=== PATIENT | female | born 1945 | race Caucasian/White ===

== ENCOUNTER 2018-05-06 13:13 | Emergency (ER) | payer MEDICARE, OTHER, SELFPAY ==
[2018-05-06 13:26] VITALS: BP 155/71; PULSE 81; RESP 18; TEMP 36.8; O2SAT 100
[2018-05-06 13:30] VITALS: BP 147/64; PULSE 87; RESP 20; O2SAT 95
--- NOTE | 2018-05-06 13:40 | DI.CT.S_ITS ---
PROCEDURE: CT HEAD/BRAIN WO CON INDICATIONS: numbness TECHNIQUE: Noncontrast 4.5 mm thick angled axial sections acquired from the foramen magnum to the vertex, with coronal and sagittal reformats. For radiation dose reduction, the following was used: automated exposure control, adjustment of mA and/or kV according to patient size. COMPARISON: [facility], MR, BRAIN (PITUITARY) W&WO CONTRAS, 02/24/2015, 13:03. [facility], MR, BRAIN (PITUITARY) W&WO CONTRAS, 06/18/2008, 10:24. [facility], RG, MRI HEAD W/WO, 07/12/2006, 9:45. [facility], RG, MRI HEAD W/WO, 07/27/2006, 13:16. FINDINGS: Image quality: Excellent. CSF spaces: Basal cisterns are patent. No extra-axial fluid collections. The ventricles are symmetric in size and shape. Brain: No intracranial bleeds or masses. There is cerebral volume loss for age, with resultant ventricular and sulcal prominence. There are periventricular and deep white matter chronic small vessel ischemic changes. There is intracranial internal carotid artery atherosclerosis. Skull and face: Calvarium and visualized facial bones appear intact, without suspicious lesions. Sinuses: Visualized sinuses and mastoids are clear. IMPRESSION: 1. No acute intracranial process. 2. Moderate atrophy and chronic microvascular ischemic changes. Dictated by: Kell Hendrix M.D. on 05/06/2018 at 14:56 Approved by: Kell Hendrix M.D. on 05/06/2018 at 14:57
--- NOTE | 2018-05-06 13:45 | ED.GENADULT ---
HPI - General Adult <MAKEDA Erickson-BC - Last Filed: 05/07/18 00:52> General Chief complaint: Diabetic Problem Stated complaint: Hyperglycemia Time Seen by Provider: 05/06/18 13:28 Source: patient Mode of arrival: EMS History of Present Illness HPI narrative: Patient presents after having high blood sugar of 500s at [place] this morning. She states she felt very weak in [place], especially in her right lower leg. She felt as though she could not walk. [place] very fatigued. Was concerned her blood sugar was too low. Checked her blood sugar and found to be and 500s and gave herself a bolus of 6 units of insulin. She is a type 1 diabetic with a current basal rate of 1 unit. She also has a history of a stroke which presented with a visual deficit. She currently denies any fever, shortness of breath or chest pain. She denies any abdominal pain. Her blood sugar was checked when she arrived to the emergency department found to be in the 200s. She states that her numbness and weakness corrected itself after her blood sugar came down. Related Data Home Medications Medication Instructions Recorded Confirmed LEVOTHYROXINE SODIUM (#LEVOTHROID 0.15 mg PO QDAY #0 09/06/12 OFF MARKET) insulin aspart U-100 [Novolog #0 09/06/12 U-100 Insulin aspart] simvastatin [Zocor] 20 mg PO HS #0 09/06/12 Travoprost (TRAVATAN OPHTH 0.004%) 1 drp OPHTH HS #0 03/04/13 [FISH OIL] 1,000 mg PO QDAY #0 03/18/13 [MULTI VITAMIN ] #0 03/18/13 aspirin 81 mg PO BID #0 03/18/13 conj estrog-medroxyprogest matt 1 tab PO QDAY #0 03/25/13 [Prempro] Allergies Allergy/AdvReac Type Severity Reaction Status Date / Time No Known Drug Allergies Allergy Verified 05/06/18 15:28 Review of Systems <CHAPINCITO Ericksno - Last Filed: 05/07/18 00:52> Review of Systems GENERAL: See HPI HEENT: Denies sinus pain, ear pain, sore throat, difficulty swallowing, dizziness. RESPIRATORY: Denies dyspnea, cough, wheezing, hemoptysis, sputum. CARDIOVASCULAR: Denies chest pain, palpitations, orthopnea, edema, GASTROINTESTINAL: Denies nausea, vomiting, abdominal pain, diarrhea, constipation, melena. : Denies dysuria, frequency, incontinence, hematuria, urinary retention. MUSCULOSKELETAL: denies weakness, joint pain, or bony pain SKIN: Denies rash, skin lesions, or other NEUROLOGIC: See HPI PSYCHIATRIC: No concerning psychosocial issues. 12 point review of systems is negative except for those stated above Exam <DARLIN EricksonP-BC - Last Filed: 05/07/18 00:52> Narrative Exam Narrative: GENERAL: This is a well-nourished, well-developed patient, no acute distress lying on stretcher. HEAD: Atraumatic. Normocephalic. No temporal or scalp tenderness. EYES: Pupils equal round and reactive. Extraocular motions intact. No scleral icterus. No injection or drainage. ENT: Nose without bleeding, purulent drainage or septal hematoma. Throat without erythema, tonsillar hypertrophy or exudate. Uvula midline. Airway patent. NECK: Trachea midline. No JVD or lymphadenopathy. Supple, nontender, no meningeal signs. CARDIOVASCULAR: Regular rate and rhythm without murmurs, gallops, or rubs. RESPIRATORY: Clear to auscultation. Breath sounds equal bilaterally. No wheezes, rales, or rhonchi. GASTROINTESTINAL: Abdomen soft, non-tender, nondistended. No hepato-splenomegaly, or palpable masses. No guarding. EXTREMITIES: No clubbing, cyanosis, or edema. No joint tenderness, effusion, or edema noted. Strength equal bilaterally upper and lower extremities. BACK: Nontender without deformity or crepitance. No flank tenderness. NEURO: AOx3. No slurred speech. Negative heel-simon test. Negative finger-nose test. Alert and oriented throughout her stay. Stable gait. Cranial nerves grossly intact. Symmetrical smile and frown. SKIN: No rash or erythema. Initial Vital Signs Initial Vital Signs: Vital Signs Temperature 98.3 F 05/06/18 13:26 Pulse Rate 81 05/06/18 13:26 Respiratory Rate 18 05/06/18 13:26 Blood Pressure 155/71 H 05/06/18 13:26 Pulse Oximetry 100 05/06/18 13:26 <Chilo Rodriguez MD - Last Filed: 05/07/18 08:45> Initial Vital Signs Initial Vital Signs: Vital Signs Temperature 98.3 F 05/06/18 13:26 Pulse Rate 81 05/06/18 13:26 Respiratory Rate 18 05/06/18 13:26 Blood Pressure 155/71 H 05/06/18 13:26 Pulse Oximetry 100 05/06/18 13:26 Course <Hanh ChenDARLINP-BC - Last Filed: 05/07/18 00:52> Additional Information: The patient presented with chief complaint of high blood sugar. Her blood sugar was 222 initially upon arrival. Given her weakness and her history of stroke, a head CT was ordered which came back negative. Her blood sugars carefully monitored throughout her stay. I checked on her several times throughout her stay. The patient requested to go home after her symptoms resolve. I discussed at length with the patient possibility of a TIA of malfunctioning insulin pump. She plans on following up with her ?diabetes doctor tomorrow.? I discussed monitoring her blood sugar every few hours throughout the night. She had no focal neurologic symptoms and was discharged with her . Orders Ordered: ED Orders 05/06/18 13:25 Urinalysis and Microscopic Stat 05/06/18 13:40 CT head/brain wo con Stat EKG-12 Lead Stat 05/06/18 14:10 Complete Blood Count AUTO DIFF Stat Comprehensive Metabolic Panel Stat Troponin & CK Cardiac Panel Stat 05/06/18 14:48 Venous Blood Gas Stat Vital Signs - 8 hr 05/06/18 13:26 05/06/18 13:30 05/06/18 16:00 Temperature 98.3 F Pulse Rate 81 87 85 Respiratory Rate 18 20 14 Blood Pressure 155/71 H Blood Pressure [Left Arm] 147/64 H 152/70 H Pulse Oximetry 100 95 99 <Chilo Rodriguez MD - Last Filed: 05/07/18 08:45> Orders Ordered: ED Orders 05/06/18 13:25 Urinalysis and Microscopic Stat 05/06/18 13:40 CT head/brain wo con Stat EKG-12 Lead Stat 05/06/18 14:10 Complete Blood Count AUTO DIFF Stat Comprehensive Metabolic Panel Stat Troponin & CK Cardiac Panel Stat 05/06/18 14:48 Venous Blood Gas Stat Vital Signs - 8 hr 05/06/18 13:26 05/06/18 13:30 05/06/18 16:00 Temperature 98.3 F Pulse Rate 81 87 85 Respiratory Rate 18 20 14 Blood Pressure 155/71 H Blood Pressure [Left Arm] 147/64 H 152/70 H Pulse Oximetry 100 95 99 Medical Decision Making <Hanh Chen CANCELING AND CUTTING CONTROL CLERK-BC - Last Filed: 05/07/18 00:52> [facility] Narrative Medical decision making narrative: Patient presented with chief complaint of high blood sugar. An EKG was done. Her blood sugar came down within normal limits. She had a negative head CT. She has slight ketones in her urine, so a VBG was drawn. Her anion gap was 6. Her blood sugars remained in good control throughout her stay in the emergency department. Her neuro exam remained benign. The patient requested to go home. I discussed at length follow-up with her wage conciliator as well as her primary care provider. She discussed that she will check her blood sugar several times throughout the night. She will be staying in and [place] She had no questions or concerns upon discharge and expressed gratitude to staff. Lab Data Result diagrams: 05/06/18 14:10 05/06/18 14:10 Lab Results 05/06/18 05/06/18 05/06/18 Range/Units 13:25 14:10 14:10 WBC 11.2 H (4.5-11.0) X10^3/uL RBC 4.89 (4.0-5.2) X10^6/uL Hgb 14.7 (12.0-16.0) g/dL Hct 43.9 (36-46) % MCV 89.7 (80-100) fL MCH 30.0 (26-34) PG MCHC 33.4 (30-36) % RDW 14.3 (11.6-14.8) % Plt Count 286 (150-400) X10^3/uL Neut % (Auto) 72.2 (50-75) % Lymph % (Auto) 17.8 L (25-40) % Cecil % (Auto) 7.4 (3-14) % Eos % (Auto) 1.6 L (2-4) % Baso % (Auto) 1.0 (0-2) % Neut # (Auto) 8100 H (8338-7168) /uL VBG pH (7.31-7.41) VBG pCO2 (45-50) mmHg VBG pO2 (35-45) mmHg VBG HCO3 (24-28) mmol/L VBG Total CO2 (24-29) mmol/L VBG O2 Saturation (70-75) % VBG Base Excess (0-4) mmol/L Sodium 135 L (137-145) mmol/L Potassium 5.1 (3.4-5.1) mmol/L Chloride 99 (98-107) mmol/L Carbon Dioxide 29 (22-32) mmol/L BUN 29 H (7-17) mg/dL Creatinine 1.00 (0.52-1.04) mg/dL Estimated GFR 54.2 L (>60) mL/min BUN/Creatinine Ratio 29.0 H (6-22) Glucose 195 H (80-110) mg/dL Calcium 10.0 (8.4-10.2) mg/dL Total Bilirubin 0.4 (0.2-1.3) mg/dL AST 30 (14-36) IU/L ALT 33 (9-52) IU/L Alkaline Phosphatase 59 (38-126) U/L Total Creatine Kinase 161 H (30-135) U/L CK-MB (CK-2) 1.70 (<2.37) ng/mL CK-MB (CK-2) Rel Index 1.1 L (1.5-5.0) % Troponin I 0.026 (0.01-0.034) ng/mL Total Protein 7.1 (6.3-8.2) g/dL Albumin 4.4 (3.5-5.0) g/dL Globulin 2.7 (1.7-4.1) g/dL Albumin/Globulin Ratio 1.6 (1.0-2.8) Urine Color Yellow Urine Appearance Clear Urine pH 7.0 (4.5-8.0) Ur Specific Monument 1.010 (1.000-1.035) Urine Protein Negative (Negative) Urine Glucose (UA) 3+ (Normal) g/dL Urine Ketones 1+ H (NEGATIVE) Urine Occult Blood Negative (Negative) Urine Nitrate Negative (Negative) Urine Bilirubin Negative (NEGATIVE) Urine Urobilinogen 0.2 (0.2) E.U./dL Ur Leukocyte Esterase Negative (NEGATIVE) Urine RBC None seen (0-5/HPF) Urine WBC None seen (0-5/HPF) Urine Bacteria None seen (None) Ur Culture Indicated? Cult not indicated Micro UA Comment Microscopic normal 05/06/18 Range/Units 14:48 WBC (4.5-11.0) X10^3/uL RBC (4.0-5.2) X10^6/uL Hgb (12.0-16.0) g/dL Hct (36-46) % MCV (80-100) fL MCH (26-34) PG MCHC (30-36) % RDW (11.6-14.8) % Plt Count (150-400) X10^3/uL Neut % (Auto) (50-75) % Lymph % (Auto) (25-40) % Cecil % (Auto) (3-14) % Eos % (Auto) (2-4) % Baso % (Auto) (0-2) % Neut # (Auto) (9386-7935) /uL VBG pH 7.40 (7.31-7.41) VBG pCO2 48.5 (45-50) mmHg VBG pO2 12 L (35-45) mmHg VBG HCO3 30 H (24-28) mmol/L VBG Total CO2 31 H (24-29) mmol/L VBG O2 Saturation 12 L (70-75) % VBG Base Excess 5.0 H (0-4) mmol/L Sodium (137-145) mmol/L Potassium (3.4-5.1) mmol/L Chloride (98-107) mmol/L Carbon Dioxide (22-32) mmol/L BUN (7-17) mg/dL Creatinine (0.52-1.04) mg/dL Estimated GFR (>60) mL/min BUN/Creatinine Ratio (6-22) Glucose (80-110) mg/dL Calcium (8.4-10.2) mg/dL Total Bilirubin (0.2-1.3) mg/dL AST (14-36) IU/L ALT (9-52) IU/L Alkaline Phosphatase (38-126) U/L Total Creatine Kinase (30-135) U/L CK-MB (CK-2) (<2.37) ng/mL CK-MB (CK-2) Rel Index (1.5-5.0) % Troponin I (0.01-0.034) ng/mL Total Protein (6.3-8.2) g/dL Albumin (3.5-5.0) g/dL Globulin (1.7-4.1) g/dL Albumin/Globulin Ratio (1.0-2.8) Urine Color Urine Appearance Urine pH (4.5-8.0) Ur Specific Monument (1.000-1.035) Urine Protein (Negative) Urine Glucose (UA) (Normal) g/dL Urine Ketones (NEGATIVE) Urine Occult Blood (Negative) Urine Nitrate (Negative) Urine Bilirubin (NEGATIVE) Urine Urobilinogen (0.2) E.U./dL Ur Leukocyte Esterase (NEGATIVE) Urine RBC (0-5/HPF) Urine WBC (0-5/HPF) Urine Bacteria (None) Ur Culture Indicated? Micro UA Comment Imaging Data CT scan - head: Radiologist's impression: [address] [address] [address] Scan Report Signed Patient: Glendy Flynn MR#: [id number] : 1945 Acct:[id number] Age/Sex: 72 / F Date of Service: 05/06/18 Loc: ED Accession Number: [id number] Procedure: CT head/brain wo con Ordering Provider: Hanh Chen- PROCEDURE: CT HEAD/BRAIN WO CON INDICATIONS: numbness TECHNIQUE: Noncontrast 4.5 mm thick angled axial sections acquired from the foramen magnum to the vertex, with coronal and sagittal reformats. For radiation dose reduction, the following was used: automated exposure control, adjustment of mA and/or kV according to patient size. COMPARISON: [facility], , BRAIN (PITUITARY) W&WO CONTRAS, 02/24/2015, 13:03. [facility], , BRAIN (PITUITARY) W&WO CONTRAS, 06/18/2008, 10:24. [facility], , MRI HEAD W/WO, 07/12/2006, 9:45. [facility], , MRI HEAD W/WO, 07/27/2006, 13:16. FINDINGS: Image quality: Excellent. CSF spaces: Basal cisterns are patent. No extra-axial fluid collections. The ventricles are symmetric in size and shape. Brain: No intracranial bleeds or masses. There is cerebral volume loss for age, with resultant ventricular and sulcal prominence. There are periventricular and deep white matter chronic small vessel ischemic changes. There is intracranial internal carotid artery atherosclerosis. Skull and face: Calvarium and visualized facial bones appear intact, without suspicious lesions. Sinuses: Visualized sinuses and mastoids are clear. IMPRESSION: 1. No acute intracranial process. 2. Moderate atrophy and chronic microvascular ischemic changes. Dictated by: Kell Hendrix M.D. on 05/06/2018 at 14:56 Approved by: Kell Hendrix M.D. on 05/06/2018 at 14:57 <Chilo Rodriguez MD - Last Filed: 05/07/18 08:45> Lab Data Lab Results 05/06/18 05/06/18 05/06/18 Range/Units 13:25 14:10 14:10 WBC 11.2 H (4.5-11.0) X10^3/uL RBC 4.89 (4.0-5.2) X10^6/uL Hgb 14.7 (12.0-16.0) g/dL Hct 43.9 (36-46) % MCV 89.7 (80-100) fL MCH 30.0 (26-34) PG MCHC 33.4 (30-36) % RDW 14.3 (11.6-14.8) % Plt Count 286 (150-400) X10^3/uL Neut % (Auto) 72.2 (50-75) % Lymph % (Auto) 17.8 L (25-40) % Cecil % (Auto) 7.4 (3-14) % Eos % (Auto) 1.6 L (2-4) % Baso % (Auto) 1.0 (0-2) % Neut # (Auto) 8100 H (4480-2052) /uL VBG pH (7.31-7.41) VBG pCO2 (45-50) mmHg VBG pO2 (35-45) mmHg VBG HCO3 (24-28) mmol/L VBG Total CO2 (24-29) mmol/L VBG O2 Saturation (70-75) % VBG Base Excess (0-4) mmol/L Sodium 135 L (137-145) mmol/L Potassium 5.1 (3.4-5.1) mmol/L Chloride 99 (98-107) mmol/L Carbon Dioxide 29 (22-32) mmol/L BUN 29 H (7-17) mg/dL Creatinine 1.00 (0.52-1.04) mg/dL Estimated GFR 54.2 L (>60) mL/min BUN/Creatinine Ratio 29.0 H (6-22) Glucose 195 H (80-110) mg/dL Calcium 10.0 (8.4-10.2) mg/dL Total Bilirubin 0.4 (0.2-1.3) mg/dL AST 30 (14-36) IU/L ALT 33 (9-52) IU/L Alkaline Phosphatase 59 (38-126) U/L Total Creatine Kinase 161 H (30-135) U/L CK-MB (CK-2) 1.70 (<2.37) ng/mL CK-MB (CK-2) Rel Index 1.1 L (1.5-5.0) % Troponin I 0.026 (0.01-0.034) ng/mL Total Protein 7.1 (6.3-8.2) g/dL Albumin 4.4 (3.5-5.0) g/dL Globulin 2.7 (1.7-4.1) g/dL Albumin/Globulin Ratio 1.6 (1.0-2.8) Urine Color Yellow Urine Appearance Clear Urine pH 7.0 (4.5-8.0) Ur Specific Monument 1.010 (1.000-1.035) Urine Protein Negative (Negative) Urine Glucose (UA) 3+ (Normal) g/dL Urine Ketones 1+ H (NEGATIVE) Urine Occult Blood Negative (Negative) Urine Nitrate Negative (Negative) Urine Bilirubin Negative (NEGATIVE) Urine Urobilinogen 0.2 (0.2) E.U./dL Ur Leukocyte Esterase Negative (NEGATIVE) Urine RBC None seen (0-5/HPF) Urine WBC None seen (0-5/HPF) Urine Bacteria None seen (None) Ur Culture Indicated? Cult not indicated Micro UA Comment Microscopic normal 05/06/18 Range/Units 14:48 WBC (4.5-11.0) X10^3/uL RBC (4.0-5.2) X10^6/uL Hgb (12.0-16.0) g/dL Hct (36-46) % MCV (80-100) fL MCH (26-34) PG MCHC (30-36) % RDW (11.6-14.8) % Plt Count (150-400) X10^3/uL Neut % (Auto) (50-75) % Lymph % (Auto) (25-40) % Cecil % (Auto) (3-14) % Eos % (Auto) (2-4) % Baso % (Auto) (0-2) % Neut # (Auto) (8417-9375) /uL VBG pH 7.40 (7.31-7.41) VBG pCO2 48.5 (45-50) mmHg VBG pO2 12 L (35-45) mmHg VBG HCO3 30 H (24-28) mmol/L VBG Total CO2 31 H (24-29) mmol/L VBG O2 Saturation 12 L (70-75) % VBG Base Excess 5.0 H (0-4) mmol/L Sodium (137-145) mmol/L Potassium (3.4-5.1) mmol/L Chloride (98-107) mmol/L Carbon Dioxide (22-32) mmol/L BUN (7-17) mg/dL Creatinine (0.52-1.04) mg/dL Estimated GFR (>60) mL/min BUN/Creatinine Ratio (6-22) Glucose (80-110) mg/dL Calcium (8.4-10.2) mg/dL Total Bilirubin (0.2-1.3) mg/dL AST (14-36) IU/L ALT (9-52) IU/L Alkaline Phosphatase (38-126) U/L Total Creatine Kinase (30-135) U/L CK-MB (CK-2) (<2.37) ng/mL CK-MB (CK-2) Rel Index (1.5-5.0) % Troponin I (0.01-0.034) ng/mL Total Protein (6.3-8.2) g/dL Albumin (3.5-5.0) g/dL Globulin (1.7-4.1) g/dL Albumin/Globulin Ratio (1.0-2.8) Urine Color Urine Appearance Urine pH (4.5-8.0) Ur Specific Monument (1.000-1.035) Urine Protein (Negative) Urine Glucose (UA) (Normal) g/dL Urine Ketones (NEGATIVE) Urine Occult Blood (Negative) Urine Nitrate (Negative) Urine Bilirubin (NEGATIVE) Urine Urobilinogen (0.2) E.U./dL Ur Leukocyte Esterase (NEGATIVE) Urine RBC (0-5/HPF) Urine WBC (0-5/HPF) Urine Bacteria (None) Ur Culture Indicated? Micro UA Comment Discharge Plan Departure Patient Disposition: Home, Self-Care Clinical Impression: Acute hyperglycemia Discharge Date/Time: 05/06/18 16:40 Interventions: ED Discharge Assessment Last Done: 05/06/18 16:40 Instructions: DI for Diabetes Type 1 -- Adult, DI for Hyperglycemia -- Adult Activity Restrictions/Additional Instructions: Please check your blood sugar several times today and tonight. Follow up with your diabetes doctor as well as your primary care provider. Come back to the emergency department if needed or if you have any acute concerns. Come back for any concern of confusion, stroke, heart attack or if you persistently have high blood sugars. Prescriptions: No Action simvastatin [Zocor] 20 MG tablet 20 mg PO HS Qty: 0 RF: 0 LEVOTHYROXINE SODIUM (#LEVOTHROID OFF MARKET) 0.15 mg PO QDAY Qty: 0 RF: 0 insulin aspart U-100 [Novolog U-100 Insulin aspart] 100 UNIT/1 ML solution Qty: 0 RF: 0 Travoprost (TRAVATAN OPHTH 0.004%) 1 drp OPHTH HS Qty: 0 RF: 0 aspirin 81 MG tablet,delayed release (DR/EC) 81 mg PO BID Qty: 0 RF: 0 [FISH OIL] 1,000 mg PO QDAY Qty: 0 RF: 0 [MULTI VITAMIN ] Qty: 0 RF: 0 conj estrog-medroxyprogest matt [Prempro] 0.3 MG/1.5 MG tablet 1 tab PO QDAY Qty: 0 RF: 0 Referrals: John Woo MD [Primary Care Provider] - <Chilo Rodriguez MD - Last Filed: 05/07/18 08:45> Sign Out Provider Sign Out Attestation: The PA/ASSISTANT READING TEACHER functioned independently for the care of this pt, I was available, but not asked to participate in care. I am unable to determine appropriateness of management without personally examining the pt.
[2018-05-06 13:52] LABS: Bacteria Urine None Seen; RBC Urine None Seen (0-5/HPF); WBC Urine None Seen (0-5/HPF)
[2018-05-06 13:53] LABS: Appearance Urine UA CLEAR; Bilirubin Urine UA NEGATIVE (NEGATIVE); Color Urine UA YELLOW; Glucose Urine UA 3+ g/dL (Normal); Ketones Urine UA 1+ (NEGATIVE); Leukocyte Esterase Urine UA NEGATIVE (NEGATIVE); Nitrite Urine UA Negative (Negative); Occult Blood Urine UA NEGATIVE (Negative); Protein Urine UA NEGATIVE (Negative); Urobilinogen Urine UA 0.2 E.U./dL (0.2)
--- NOTE | 2018-05-06 13:56 | ED_ITS ---
HPI - General Adult <MAKEDA Erickson-BC - Last Filed: 05/07/18 00:52> General Chief complaint: Diabetic Problem Stated complaint: Hyperglycemia Time Seen by Provider: 05/06/18 13:28 Source: patient Mode of arrival: EMS History of Present Illness HPI narrative: Patient presents after having high blood sugar of 500s at synagogue this morning. She states she felt very weak in synagogue, especially in her right lower leg. She felt as though she could not walk. [place] very fatigued. Was concerned her blood sugar was too low. Checked her blood sugar and found to be and 500s and gave herself a bolus of 6 units of insulin. She is a type 1 diabetic with a current basal rate of 1 unit. She also has a history of a stroke which presented with a visual deficit. She currently denies any fever, shortness of breath or chest pain. She denies any abdominal pain. Her blood sugar was checked when she arrived to the emergency department found to be in the 200s. She states that her numbness and weakness corrected itself after her blood sugar came down. Related Data Home Medications Medication Instructions Recorded Confirmed LEVOTHYROXINE SODIUM (#LEVOTHROID 0.15 mg PO QDAY #0 09/06/12 OFF MARKET) insulin aspart U-100 [Novolog #0 09/06/12 U-100 Insulin aspart] simvastatin [Zocor] 20 mg PO HS #0 09/06/12 Travoprost (TRAVATAN OPHTH 0.004%) 1 drp OPHTH HS #0 03/04/13 [FISH OIL] 1,000 mg PO QDAY #0 03/18/13 [MULTI VITAMIN ] #0 03/18/13 aspirin 81 mg PO BID #0 03/18/13 conj estrog-medroxyprogest matt 1 tab PO QDAY #0 03/25/13 [Prempro] Allergies Allergy/AdvReac Type Severity Reaction Status Date / Time No Known Drug Allergies Allergy Verified 05/06/18 15:28 Review of Systems <CHAPINCITO Erickson - Last Filed: 05/07/18 00:52> Review of Systems GENERAL: See HPI HEENT: Denies sinus pain, ear pain, sore throat, difficulty swallowing, dizziness. RESPIRATORY: Denies dyspnea, cough, wheezing, hemoptysis, sputum. CARDIOVASCULAR: Denies chest pain, palpitations, orthopnea, edema, GASTROINTESTINAL: Denies nausea, vomiting, abdominal pain, diarrhea, constipation, melena. : Denies dysuria, frequency, incontinence, hematuria, urinary retention. MUSCULOSKELETAL: denies weakness, joint pain, or bony pain SKIN: Denies rash, skin lesions, or other NEUROLOGIC: See HPI PSYCHIATRIC: No concerning psychosocial issues. 12 point review of systems is negative except for those stated above Exam <DARLIN EricksonP-BC - Last Filed: 05/07/18 00:52> Narrative Exam Narrative: GENERAL: This is a well-nourished, well-developed patient, no acute distress lying on stretcher. HEAD: Atraumatic. Normocephalic. No temporal or scalp tenderness. EYES: Pupils equal round and reactive. Extraocular motions intact. No scleral icterus. No injection or drainage. ENT: Nose without bleeding, purulent drainage or septal hematoma. Throat without erythema, tonsillar hypertrophy or exudate. Uvula midline. Airway patent. NECK: Trachea midline. No JVD or lymphadenopathy. Supple, nontender, no meningeal signs. CARDIOVASCULAR: Regular rate and rhythm without murmurs, gallops, or rubs. RESPIRATORY: Clear to auscultation. Breath sounds equal bilaterally. No wheezes , rales, or rhonchi. GASTROINTESTINAL: Abdomen soft, non-tender, nondistended. No hepato-splenomegaly , or palpable masses. No guarding. EXTREMITIES: No clubbing, cyanosis, or edema. No joint tenderness, effusion, or edema noted. Strength equal bilaterally upper and lower extremities. BACK: Nontender without deformity or crepitance. No flank tenderness. NEURO: AOx3. No slurred speech. Negative heel-simon test. Negative finger-nose test. Alert and oriented throughout her stay. Stable gait. Cranial nerves grossly intact. Symmetrical smile and frown. SKIN: No rash or erythema. Initial Vital Signs Initial Vital Signs: Vital Signs Temperature 98.3 F 05/06/18 13:26 Pulse Rate 81 05/06/18 13:26 Respiratory Rate 18 05/06/18 13:26 Blood Pressure 155/71 H 05/06/18 13:26 Pulse Oximetry 100 05/06/18 13:26 <Chilo Rodriguez MD - Last Filed: 05/07/18 08:45> Initial Vital Signs Initial Vital Signs: Vital Signs Temperature 98.3 F 05/06/18 13:26 Pulse Rate 81 05/06/18 13:26 Respiratory Rate 18 05/06/18 13:26 Blood Pressure 155/71 H 05/06/18 13:26 Pulse Oximetry 100 05/06/18 13:26 Course <Hanh ChenDARLINP-BC - Last Filed: 05/07/18 00:52> Additional Information: The patient presented with chief complaint of high blood sugar. Her blood sugar was 222 initially upon arrival. Given her weakness and her history of stroke, a head CT was ordered which came back negative. Her blood sugars carefully monitored throughout her stay. I checked on her several times throughout her stay. The patient requested to go home after her symptoms resolve. I discussed at length with the patient possibility of a TIA of malfunctioning insulin pump. She plans on following up with her ? diabetes doctor tomorrow.? I discussed monitoring her blood sugar every few hours throughout the night. She had no focal neurologic symptoms and was discharged with her . Orders Ordered: ED Orders 05/06/18 13:25 Urinalysis and Microscopic Stat 05/06/18 13:40 CT head/brain wo con Stat EKG-12 Lead Stat 05/06/18 14:10 Complete Blood Count AUTO DIFF Stat Comprehensive Metabolic Panel Stat Troponin & CK Cardiac Panel Stat 05/06/18 14:48 Venous Blood Gas Stat Vital Signs - 8 hr 05/06/18 13:26 05/06/18 13:30 05/06/18 16:00 Temperature 98.3 F Pulse Rate 81 87 85 Respiratory Rate 18 20 14 Blood Pressure 155/71 H Blood Pressure [Left Arm] 147/64 H 152/70 H Pulse Oximetry 100 95 99 <Chilo Rodriguez MD - Last Filed: 05/07/18 08:45> Orders Ordered: ED Orders 05/06/18 13:25 Urinalysis and Microscopic Stat 05/06/18 13:40 CT head/brain wo con Stat EKG-12 Lead Stat 05/06/18 14:10 Complete Blood Count AUTO DIFF Stat Comprehensive Metabolic Panel Stat Troponin & CK Cardiac Panel Stat 05/06/18 14:48 Venous Blood Gas Stat Vital Signs - 8 hr 05/06/18 13:26 05/06/18 13:30 05/06/18 16:00 Temperature 98.3 F Pulse Rate 81 87 85 Respiratory Rate 18 20 14 Blood Pressure 155/71 H Blood Pressure [Left Arm] 147/64 H 152/70 H Pulse Oximetry 100 95 99 Medical Decision Making <Hanh Chen CONTINUITY TESTER-BC - Last Filed: 05/07/18 00:52> [facility] Narrative Medical decision making narrative: Patient presented with chief complaint of high blood sugar. An EKG was done. Her blood sugar came down within normal limits. She had a negative head CT. She has slight ketones in her urine, so a VBG was drawn. Her anion gap was 6. Her blood sugars remained in good control throughout her stay in the emergency department. Her neuro exam remained benign. The patient requested to go home. 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 She discussed that she will check her blood sugar several times throughout the night. She will be staying in and [place] She had no questions or concerns upon discharge and expressed gratitude to staff. Lab Data Result diagrams: 05/06/18 14:10 05/06/18 14:10 Lab Results 05/06/18 05/06/18 05/06/18 Range/Units 13:25 14:10 14:10 WBC 11.2 H (4.5-11.0) X10^3/uL RBC 4.89 (4.0-5.2) X10^6/uL Hgb 14.7 (12.0-16.0) g/dL Hct 43.9 (36-46) % MCV 89.7 (80-100) fL MCH 30.0 (26-34) PG MCHC 33.4 (30-36) % RDW 14.3 (11.6-14.8) % Plt Count 286 (150-400) X10^3/uL Neut % (Auto) 72.2 (50-75) % Lymph % (Auto) 17.8 L (25-40) % [place] % (Auto) 7.4 (3-14) % Eos % (Auto) 1.6 L (2-4) % Baso % (Auto) 1.0 (0-2) % Neut # (Auto) 8100 H (3516-8472) /uL VBG pH (7.31-7.41) VBG pCO2 (45-50) mmHg VBG pO2 (35-45) mmHg VBG HCO3 (24-28) mmol/L VBG Total CO2 (24-29) mmol/L VBG O2 Saturation (70-75) % VBG Base Excess (0-4) mmol/L Sodium 135 L (137-145) mmol/L Potassium 5.1 (3.4-5.1) mmol/L Chloride 99 (98-107) mmol/L Carbon Dioxide 29 (22-32) mmol/L BUN 29 H (7-17) mg/dL Creatinine 1.00 (0.52-1.04) mg/dL Estimated GFR 54.2 L (>60) mL/min BUN/Creatinine Ratio 29.0 H (6-22) Glucose 195 H (80-110) mg/dL Calcium 10.0 (8.4-10.2) mg/dL Total Bilirubin 0.4 (0.2-1.3) mg/dL AST 30 (14-36) IU/L ALT 33 (9-52) IU/L Alkaline Phosphatase 59 (38-126) U/L Total Creatine Kinase 161 H (30-135) U/L CK-MB (CK-2) 1.70 (<2.37) ng/mL CK-MB (CK-2) Rel Index 1.1 L (1.5-5.0) % Troponin I 0.026 (0.01-0.034) ng/mL Total Protein 7.1 (6.3-8.2) g/dL Albumin 4.4 (3.5-5.0) g/dL Globulin 2.7 (1.7-4.1) g/dL Albumin/Globulin Ratio 1.6 (1.0-2.8) Urine Color Yellow Urine Appearance Clear Urine pH 7.0 (4.5-8.0) Ur Specific Mallie 1.010 (1.000-1.035) Urine Protein Negative (Negative) Urine Glucose (UA) 3+ (Normal) g/dL Urine Ketones 1+ H (NEGATIVE) Urine Occult Blood Negative (Negative) Urine Nitrate Negative (Negative) Urine Bilirubin Negative (NEGATIVE) Urine Urobilinogen 0.2 (0.2) E.U./dL Ur Leukocyte Esterase Negative (NEGATIVE) Urine RBC None seen (0-5/HPF) Urine WBC None seen (0-5/HPF) Urine Bacteria None seen (None) Ur Culture Indicated? Cult not indicated Micro UA Comment Microscopic normal 05/06/18 Range/Units 14:48 WBC (4.5-11.0) X10^3/uL RBC (4.0-5.2) X10^6/uL Hgb (12.0-16.0) g/dL Hct (36-46) % MCV (80-100) fL MCH (26-34) PG MCHC (30-36) % RDW (11.6-14.8) % Plt Count (150-400) X10^3/uL Neut % (Auto) (50-75) % Lymph % (Auto) (25-40) % [place] % (Auto) (3-14) % Eos % (Auto) (2-4) % Baso % (Auto) (0-2) % Neut # (Auto) (2976-8848) /uL VBG pH 7.40 (7.31-7.41) VBG pCO2 48.5 (45-50) mmHg VBG pO2 12 L (35-45) mmHg VBG HCO3 30 H (24-28) mmol/L VBG Total CO2 31 H (24-29) mmol/L VBG O2 Saturation 12 L (70-75) % VBG Base Excess 5.0 H (0-4) mmol/L Sodium (137-145) mmol/L Potassium (3.4-5.1) mmol/L Chloride (98-107) mmol/L Carbon Dioxide (22-32) mmol/L BUN (7-17) mg/dL Creatinine (0.52-1.04) mg/dL Estimated GFR (>60) mL/min BUN/Creatinine Ratio (6-22) Glucose (80-110) mg/dL Calcium (8.4-10.2) mg/dL Total Bilirubin (0.2-1.3) mg/dL AST (14-36) IU/L ALT (9-52) IU/L Alkaline Phosphatase (38-126) U/L Total Creatine Kinase (30-135) U/L CK-MB (CK-2) (<2.37) ng/mL CK-MB (CK-2) Rel Index (1.5-5.0) % Troponin I (0.01-0.034) ng/mL Total Protein (6.3-8.2) g/dL Albumin (3.5-5.0) g/dL Globulin (1.7-4.1) g/dL Albumin/Globulin Ratio (1.0-2.8) Urine Color Urine Appearance Urine pH (4.5-8.0) Ur Specific Mallie (1.000-1.035) Urine Protein (Negative) Urine Glucose (UA) (Normal) g/dL Urine Ketones (NEGATIVE) Urine Occult Blood (Negative) Urine Nitrate (Negative) Urine Bilirubin (NEGATIVE) Urine Urobilinogen (0.2) E.U./dL Ur Leukocyte Esterase (NEGATIVE) Urine RBC (0-5/HPF) Urine WBC (0-5/HPF) Urine Bacteria (None) Ur Culture Indicated? Micro UA Comment Imaging Data CT scan - head: Radiologist's impression: [address] [address] [address] Scan Report Signed Patient: Glendy Flynn MR#: [id number] : 1945 Acct:[id number] Age/Sex: 72 / F Date of Service: 05/06/18 Loc: ED Accession Number: [id number] Procedure: CT head/brain wo con Ordering Provider: Hanh Chen- PROCEDURE: CT HEAD/BRAIN WO CON INDICATIONS: numbness TECHNIQUE: Noncontrast 4.5 mm thick angled axial sections acquired from the foramen magnum to the vertex, with coronal and sagittal reformats. For radiation dose reduction, the following was used: automated exposure control, adjustment of mA and/or kV according to patient size. COMPARISON: [facility], , BRAIN (PITUITARY) W&WO CONTRAS, 02/24/2015, 13: 03. [facility], , BRAIN (PITUITARY) W&WO CONTRAS, 06/18/2008, 10:24. [facility], , MRI HEAD W/WO, 07/12/2006, 9:45. [facility], , MRI HEAD W/ WO, 07/27/2006, 13:16. FINDINGS: Image quality: Excellent. CSF spaces: Basal cisterns are patent. No extra-axial fluid collections. The ventricles are symmetric in size and shape. Brain: No intracranial bleeds or masses. There is cerebral volume loss for age , with resultant ventricular and sulcal prominence. There are periventricular and deep white matter chronic small vessel ischemic changes. There is intracranial internal carotid artery atherosclerosis. Skull and face: Calvarium and visualized facial bones appear intact, without suspicious lesions. Sinuses: Visualized sinuses and mastoids are clear. IMPRESSION: 1. No acute intracranial process. 2. Moderate atrophy and chronic microvascular ischemic changes. Dictated by: Kell Hendrix M.D. on 05/06/2018 at 14:56 Approved by: Kell Hendrix M.D. on 05/06/2018 at 14:57 <Chilo Rodriguez MD - Last Filed: 05/07/18 08:45> Lab Data Lab Results 05/06/18 05/06/18 05/06/18 Range/Units 13:25 14:10 14:10 WBC 11.2 H (4.5-11.0) X10^3/uL RBC 4.89 (4.0-5.2) X10^6/uL Hgb 14.7 (12.0-16.0) g/dL Hct 43.9 (36-46) % MCV 89.7 (80-100) fL MCH 30.0 (26-34) PG MCHC 33.4 (30-36) % RDW 14.3 (11.6-14.8) % Plt Count 286 (150-400) X10^3/uL Neut % (Auto) 72.2 (50-75) % Lymph % (Auto) 17.8 L (25-40) % [place] % (Auto) 7.4 (3-14) % Eos % (Auto) 1.6 L (2-4) % Baso % (Auto) 1.0 (0-2) % Neut # (Auto) 8100 H (2254-2512) /uL VBG pH (7.31-7.41) VBG pCO2 (45-50) mmHg VBG pO2 (35-45) mmHg VBG HCO3 (24-28) mmol/L VBG Total CO2 (24-29) mmol/L VBG O2 Saturation (70-75) % VBG Base Excess (0-4) mmol/L Sodium 135 L (137-145) mmol/L Potassium 5.1 (3.4-5.1) mmol/L Chloride 99 (98-107) mmol/L Carbon Dioxide 29 (22-32) mmol/L BUN 29 H (7-17) mg/dL Creatinine 1.00 (0.52-1.04) mg/dL Estimated GFR 54.2 L (>60) mL/min BUN/Creatinine Ratio 29.0 H (6-22) Glucose 195 H (80-110) mg/dL Calcium 10.0 (8.4-10.2) mg/dL Total Bilirubin 0.4 (0.2-1.3) mg/dL AST 30 (14-36) IU/L ALT 33 (9-52) IU/L Alkaline Phosphatase 59 (38-126) U/L Total Creatine Kinase 161 H (30-135) U/L CK-MB (CK-2) 1.70 (<2.37) ng/mL CK-MB (CK-2) Rel Index 1.1 L (1.5-5.0) % Troponin I 0.026 (0.01-0.034) ng/mL Total Protein 7.1 (6.3-8.2) g/dL Albumin 4.4 (3.5-5.0) g/dL Globulin 2.7 (1.7-4.1) g/dL Albumin/Globulin Ratio 1.6 (1.0-2.8) Urine Color Yellow Urine Appearance Clear Urine pH 7.0 (4.5-8.0) Ur Specific Mallie 1.010 (1.000-1.035) Urine Protein Negative (Negative) Urine Glucose (UA) 3+ (Normal) g/dL Urine Ketones 1+ H (NEGATIVE) Urine Occult Blood Negative (Negative) Urine Nitrate Negative (Negative) Urine Bilirubin Negative (NEGATIVE) Urine Urobilinogen 0.2 (0.2) E.U./dL Ur Leukocyte Esterase Negative (NEGATIVE) Urine RBC None seen (0-5/HPF) Urine WBC None seen (0-5/HPF) Urine Bacteria None seen (None) Ur Culture Indicated? Cult not indicated Micro UA Comment Microscopic normal 05/06/18 Range/Units 14:48 WBC (4.5-11.0) X10^3/uL RBC (4.0-5.2) X10^6/uL Hgb (12.0-16.0) g/dL Hct (36-46) % MCV (80-100) fL MCH (26-34) PG MCHC (30-36) % RDW (11.6-14.8) % Plt Count (150-400) X10^3/uL Neut % (Auto) (50-75) % Lymph % (Auto) (25-40) % [place] % (Auto) (3-14) % Eos % (Auto) (2-4) % Baso % (Auto) (0-2) % Neut # (Auto) (9322-6200) /uL VBG pH 7.40 (7.31-7.41) VBG pCO2 48.5 (45-50) mmHg VBG pO2 12 L (35-45) mmHg VBG HCO3 30 H (24-28) mmol/L VBG Total CO2 31 H (24-29) mmol/L VBG O2 Saturation 12 L (70-75) % VBG Base Excess 5.0 H (0-4) mmol/L Sodium (137-145) mmol/L Potassium (3.4-5.1) mmol/L Chloride (98-107) mmol/L Carbon Dioxide (22-32) mmol/L BUN (7-17) mg/dL Creatinine (0.52-1.04) mg/dL Estimated GFR (>60) mL/min BUN/Creatinine Ratio (6-22) Glucose (80-110) mg/dL Calcium (8.4-10.2) mg/dL Total Bilirubin (0.2-1.3) mg/dL AST (14-36) IU/L ALT (9-52) IU/L Alkaline Phosphatase (38-126) U/L Total Creatine Kinase (30-135) U/L CK-MB (CK-2) (<2.37) ng/mL CK-MB (CK-2) Rel Index (1.5-5.0) % Troponin I (0.01-0.034) ng/mL Total Protein (6.3-8.2) g/dL Albumin (3.5-5.0) g/dL Globulin (1.7-4.1) g/dL Albumin/Globulin Ratio (1.0-2.8) Urine Color Urine Appearance Urine pH (4.5-8.0) Ur Specific Mallie (1.000-1.035) Urine Protein (Negative) Urine Glucose (UA) (Normal) g/dL Urine Ketones (NEGATIVE) Urine Occult Blood (Negative) Urine Nitrate (Negative) Urine Bilirubin (NEGATIVE) Urine Urobilinogen (0.2) E.U./dL Ur Leukocyte Esterase (NEGATIVE) Urine RBC (0-5/HPF) Urine WBC (0-5/HPF) Urine Bacteria (None) Ur Culture Indicated? Micro UA Comment Discharge Plan Departure Patient Disposition: Home, Self-Care Clinical Impression: Acute hyperglycemia Discharge Date/Time: 05/06/18 16:40 Interventions: ED Discharge Assessment Last Done: 05/06/18 16:40 Instructions: DI for Diabetes Type 1 -- Adult, DI for Hyperglycemia -- Adult Activity Restrictions/Additional Instructions: Please check your blood sugar several times today and tonight. Follow up with your diabetes doctor as well as your primary care provider. Come back to the emergency department if needed or if you have any acute concerns. Come back for any concern of confusion, stroke, heart attack or if you persistently have high blood sugars. Prescriptions: No Action simvastatin [Zocor] 20 MG tablet 20 mg PO HS Qty: 0 RF: 0 LEVOTHYROXINE SODIUM (#LEVOTHROID OFF MARKET) 0.15 mg PO QDAY Qty: 0 RF: 0 insulin aspart U-100 [Novolog U-100 Insulin aspart] 100 UNIT/1 ML solution Qty: 0 RF: 0 Travoprost (TRAVATAN OPHTH 0.004%) 1 drp OPHTH HS Qty: 0 RF: 0 aspirin 81 MG tablet,delayed release (DR/EC) 81 mg PO BID Qty: 0 RF: 0 [FISH OIL] 1,000 mg PO QDAY Qty: 0 RF: 0 [MULTI VITAMIN ] Qty: 0 RF: 0 conj estrog-medroxyprogest matt [Prempro] 0.3 MG/1.5 MG tablet 1 tab PO QDAY Qty: 0 RF: 0 Referrals: John Woo MD [Primary Care Provider] - <Chilo Rodriguez MD - Last Filed: 05/07/18 08:45> Sign Out Provider Sign Out Attestation: The PA/HOIST WORKER functioned independently for the care of this pt, I was available, but not asked to participate in care. I am unable to determine appropriateness of management without personally examining the pt.
[2018-05-06 14:02] LABS: Culture Indicated Urine Cult Not Indicated; Urine Comments Microscopic Normal
[2018-05-06 14:19] LABS: Add Manual Diff / Slide Review NO; Eosinophils Percent Auto 1.6 % (2-4); Hematocrit 43.9 % (36-46); Hemoglobin 14.7 g/dL (12.0-16.0); Lymphocytes Percent Auto 17.8 % (25-40); Mean Corpuscular HGB Conc 33.4 % (30-36); Mean Corpuscular Volume 89.7 fL (80-100); Monocytes Percent Auto 7.4 % (3-14); Neutrophils Absolute Auto 8100 /uL (3000-5900); Neutrophils Percent Auto 72.2 % (50-75); Platelet Count 286 X10^3/uL (150-400); Red Blood Cell Count 4.89 X10^6/uL (4.0-5.2); Red Cell Distribution Width 14.3 % (11.6-14.8); White Blood Cell Count 11.2 X10^3/uL (4.5-11.0)
[2018-05-06 14:30] LABS: Alanine Aminotransferase 33 IU/L (9-52); Albumin 4.4 g/dL (3.5-5.0); Albumin Globulin Ratio 1.6 (1.0-2.8); Alkaline Phosphatase 59 U/L (38-126); Aspartate Aminotransferase 30 IU/L (14-36); Bilirubin Total 0.4 mg/dL (0.2-1.3); Blood Urea Nitrogen 29 mg/dL (7-17); Carbon Dioxide 29 mmol/L (22-32); Chloride 99 mmol/L (98-107); Creatine Kinase 161 U/L (30-135); Estimated Glomerular Filt Rate 54.2 mL/min (>60); Globulin 2.7 g/dL (1.7-4.1); Glucose 195 mg/dL (80-110); HEMOLYSIS < 15 (0-50); Potassium 5.1 mmol/L (3.4-5.1); Sodium 135 mmol/L (137-145); Total Protein 7.1 g/dL (6.3-8.2)
[2018-05-06 14:41] LABS: Troponin I 0.026 ng/mL (0.01-0.034)
[2018-05-06 14:45] LABS: CKMB % Relative Index 1.1 % (1.5-5.0)
[2018-05-06 16:00] VITALS: BP 152/70; PULSE 85; RESP 14; O2SAT 99
[2018-05-06 16:10] LABS: HCO3 VBG 30 mmol/L (24-28); Oxygen Saturation VBG 12 % (70-75); PCO2 VBG 48.5 mmHg (45-50); PO2 VBG 12 mmHg (35-45); Total CO2 VBG 31 mmol/L (24-29)
[2018-05-06 16:28] VITALS: BP 152/70; PULSE 82; RESP 20; O2SAT 99
--- NOTE | 2018-05-06 16:31 | PC.NURSE ---
Pt being discharged home. Pt's family member asking to have a ferry voucher to be able to get on the ferry tonight since all reservations are booked. Advised we only give out ferry vouchers if medically necessary and explained how pt does not pose any medical risk in order to be allowed access onto ferry first. Pt ambulatory, has medications she needs, and does not require portable oxygen. Family member has asked several staff members multiple times with the same explanation given. After speaking with him myself family appears understandable.
== END 2018-05-06 16:40 | disposition home or self-care (01) ==
PROVIDERS: Emergency Provider Nurse Practitioner Family; Family Provider Family Medicine; PCP Family Medicine
DX: R73.9 Hyperglycemia, unspecified (principal); R53.1 Weakness; R20.0 Anesthesia of skin; Z86.73 Personal history of transient ischemic attack (TIA), and cerebral infarction without residual deficits
CPT/HCPCS: 36415; 70450; 80053; 81001; 82550; 82553; 82805; 82962; 84484; 85025; 93005; 93041; 99283; 99285

== ENCOUNTER 2019-08-09 12:20 | Emergency (ER) | payer MEDICARE, OTHER, SELFPAY ==
[2019-08-09 12:27] VITALS: BP 169/78; PULSE 88; RESP 18; TEMP 36.4; O2SAT 98; BMI 26.6
--- NOTE | 2019-08-09 12:41 | ED_ITS ---
HPI - General Adult <DAVEY Jaeger - Last Filed: 08/09/19 21:53> General Chief complaint: Diabetic Problem Stated complaint: 10 shots of insulin, instead of 1 Time Seen by Provider: 08/09/19 12:29 Source: patient Mode of arrival: Ambulatory Limitations: no limitations History of Present Illness HPI narrative: This is a 74 year female, nonsmoker, who presents to ED with spouse after she accidentally programmed her insulin pump and received 10 units of NovoLog instead of 1 unit for AC dose. Since then she had a lunch, salad with sweet dressing and postprandial glucose is 248 at this time. Patient also has on continuous glucose monitor. Patient has a history of over 20 years of diabetes and has symptoms of hypoglycemia if her blood sugar goes below 80 mg/dL such as lightheadedness/dizziness and cold sweats. Patient denies any recent illness at this time. Related Data Home Medications Medication Instructions Recorded Confirmed simvastatin [Zocor] 20 mg PO BEDTIME #0 09/06/12 08/09/19 Travoprost (TRAVATAN OPHTH 0.004%) 1 drp OPHTH HS #0 03/04/13 [FISH OIL] 1,000 mg PO QDAY #0 03/18/13 [MULTI VITAMIN ] #0 03/18/13 aspirin 81 mg PO BID #0 03/18/13 conj estrog-medroxyprogest matt 1 tab PO QDAY #0 03/25/13 [Prempro] insulin aspart U-100 [Novolog 08/09/19 U-100 Insulin aspart] levothyroxine 125 mcg PO DAILY 08/09/19 08/09/19 trazodone 100 mg PO BEDTIME 08/09/19 08/09/19 Allergies Allergy/AdvReac Type Severity Reaction Status Date / Time No Known Drug Allergies Allergy Verified 05/06/18 15:28 Review of Systems <DAVEY Jaeger - Last Filed: 08/09/19 21:53> Review of Systems Narrative: General: Denies fever, chills, fatigue, malaise, sweats. HEENT: Denies sinus pain, ear pain, sore throat, difficulty swallowing, dizziness. Respiratory: Denies dyspnea, cough, wheezing, hemoptysis, sputum. Cardiovascular: Denies chest pain, palpitations, orthopnea, edema. Gastrointestinal: Denies nausea, vomiting, abdominal pain, diarrhea, constipation, melena. : Denies dysuria, frequency, incontinence, hematuria, urinary retention. Musculoskeletal: Denies weakness, joint pain or bony pain. Skin: Denies rash, skin lesions, or other. Neurologic: Denies weakness, headache, numbness, change in speech, confusion, seizures, incoordination. Psychiatric: No concerning psychosocial issues. 12-point review of systems is negative except for those stated above. Patient History <DAVEY Jaeger - Last Filed: 08/09/19 21:53> Surgical History History of knee surgery (Acute) Social History Smoking Status: Unknown if ever smoked alcohol intake frequency: holidays/special occasions only Substance Use Type: does not use Exam <DAVEY Jaeger - Last Filed: 08/09/19 21:53> Narrative Exam Narrative: General appearance: well developed, well nourished, in no acute distress. Head: normocephalic, atraumatic, no scalp lesions, non-tender. Eye: pupil equal, round. EOMI. Nose: nares patent. Oral: mucosa moist. Neck/Thyroid: neck supple, full range of motion, no visible masses. Skin: no suspicious rashes, lesions over visible areas. Warm and dry. Heart: no clubbing, no cyanosis, no edema. Lungs: Breathing even and unlabored. No stridor. No accessory muscles used. Chest: normal shape and expansion. Abdomen: non-obese, non-distended. Neurologic: alert and oriented. Cognitive exam, AU PAIR and PNS grossly intact on informal exam. Psych: good eye contact, normal affect. Initial Vital Signs Initial Vital Signs: Vital Signs Temperature 97.6 F 08/09/19 12:27 Pulse Rate 88 08/09/19 12:27 Respiratory Rate 18 08/09/19 12:27 Blood Pressure 169/78 H 08/09/19 12:27 Pulse Oximetry 98 08/09/19 12:27 <Tarun Becker DO - Last Filed: 08/12/19 07:03> Initial Vital Signs Initial Vital Signs: Vital Signs Temperature 97.6 F 08/09/19 12:27 Pulse Rate 88 08/09/19 12:27 Respiratory Rate 18 08/09/19 12:27 Blood Pressure 169/78 H 08/09/19 12:27 Pulse Oximetry 98 08/09/19 12:27 Course <Bolivar BahenaDAVEY - Last Filed: 08/09/19 21:53> Vital Signs Vital signs: Vital Signs - 8 hr 08/09/19 14:05 Pulse Rate 73 Blood Pressure [Left Arm] 152/80 H Pulse Oximetry 99 <Tarun StacielosDO - Last Filed: 08/12/19 07:03> Vital Signs Vital signs: Vital Signs - 8 hr 08/09/19 14:05 Pulse Rate 73 Blood Pressure [Left Arm] 152/80 H Pulse Oximetry 99 Medical Decision Making <Bolivar BahenaDAVEY - Last Filed: 08/09/19 21:53> Differential Diagnosis Differential Diagnosis: Hypoglycemia, an accidental overdose on insulin, encounter for BG monitor Medical Records Medical records reviewed: Yes I reviewed the patient's medical records. Lab Data Lab results reviewed: Yes I reviewed the patient's lab results. Labs: Point of Care Testing Glucose POC 215 Point of care testing: Point of Care Testing Glucose POC 215 MDM Narrative Medical decision making narrative: This is a 74 year female who presents to ED after she accidentally overdosed her insulin dose before she had her lunch. Patient has continue glucose monitor and uses insulin pump. She accidentally medicated herself with 10 units of NovoLog instead of 1 unit. Patient was hoping to receive glucagon injection before she gets on a [place] back to home. Patient informed that should be monitored and treatment with glucagon may not be necessary. Patient does not have any hypoglycemic symptoms when she came in to ED. She is familiar of hypoglycemic symptoms. Patient was monitored for 2.5 hours in ED for her blood glucose and her symptoms. Her blood glucose remained greater than 200 while in the ED and had no hypoglycemic symptoms. I discussed with the patient that she should be monitor from additional 1.5 hour for medications efficacy duration, but she states is comfortable monitoring her blood glucose with her own monitor and by her symptoms. She states is able to treat herself with sugary food/she drinks if hypoglycemia occurs since she would like to take the scheduled [place] back home with her . Patient provided with snacks and sugar packets in case she has symptomatic hyperglycemia while on the way to home. Patient agrees with treatment plan and verbalized understanding. Return precautions were discussed with the patient. <Tarun Becker DO - Last Filed: 08/12/19 07:03> Lab Data Labs: Point of Care Testing Glucose POC 215 Point of care testing: Point of Care Testing Glucose POC 215 Discharge Plan Departure Patient Disposition: Home Clinical Impression: Insulin dependent diabetes mellitus Discharge Date/Time: 08/09/19 14:16 Instructions: DI for Hypoglycemia Activity Restrictions/Additional Instructions: You have been diagnosed with [encounter for evaluation for hypoglycemia after accidental overdose on insulin]. What to do: *Take your medications as directed. Please takes snacks if you do have symptoms for hypoglycemia or if your glucose monitor's reading is low. Your medication may last another 2 hrs for decreasing blood glucose. *Follow up with your primary care provider in 2-3 days, call for an appointment. Let them know you were seen in the ED and that we asked you to be seen in follow up. *Return to ED if you have any new, worsening, or concerning symptoms, such as [hypoglycemic symptoms such as lightheadedness, jitteriness, cold sweats or breathing difficulty, chest pain, or any acute concerns]. Prescriptions: No Action simvastatin [Zocor] 20 MG tablet 20 mg PO BEDTIME Qty: 0 RF: 0 Travoprost (TRAVATAN OPHTH 0.004%) 1 drp OPHTH HS Qty: 0 RF: 0 aspirin 81 MG tablet,delayed release (DR/EC) 81 mg PO BID Qty: 0 RF: 0 [FISH OIL] 1,000 mg PO QDAY Qty: 0 RF: 0 [MULTI VITAMIN ] Qty: 0 RF: 0 conj estrog-medroxyprogest matt [Prempro] 0.3 MG/1.5 MG tablet 1 tab PO QDAY Qty: 0 RF: 0 trazodone 100 mg tablet 100 mg PO BEDTIME RF: 0 Novolog U-100 Insulin aspart 100 unit/mL solution RF: 0 levothyroxine 125 mcg tablet 125 mcg PO DAILY RF: 0 Referrals: John Woo MD [Primary Care Provider] - <Tarun Becker DO - Last Filed: 08/12/19 07:03> Sign Out Provider Sign Out Attestation: I was available for consultation during this patient's emergency department visit. This chart is signed by myself for administrative purposes only. I did not have direct contact with this patient during this visit. They were seen independently by the APC.
--- NOTE | 2019-08-09 12:59 | PC.NURSE ---
pt ate and then accidently took 10 units of Novolog insulin instead of one unit. pt is stable at this time. blood glucose stable. pt is on a continuous infusion pump.
--- NOTE | 2019-08-09 13:47 | PC.NURSE ---
blood glucose 207 on pt's monitor
[2019-08-09 14:05] VITALS: BP 152/80; PULSE 73; O2SAT 99
== END 2019-08-09 14:16 | disposition home or self-care (01) ==
PROVIDERS: Emergency Provider Nurse Practitioner Family; PCP Family Medicine
DX: E11.649 Type 2 diabetes mellitus with hypoglycemia without coma (principal); T38.3X5A Adverse effect of insulin and oral hypoglycemic [antidiabetic] drugs, initial encounter
CPT/HCPCS: 82962; 99282

== ENCOUNTER → 2021-01-28 11:09 | Outpatient (CLI) | payer MEDICARE, OTHER, SELFPAY ==
[2021-01-28 20:31] LABS: Alanine Aminotransferase 24 IU/L (<35); Albumin 4.2 g/dL (3.5-5.0); Albumin Globulin Ratio 1.6 (1.0-2.8); Alkaline Phosphatase 53 U/L (38-126); Aspartate Aminotransferase 36 IU/L (14-36); BUN Creatinine Ratio 34.1 (6-22); Bilirubin Total 0.4 mg/dL (0.2-1.3); Blood Urea Nitrogen 30 mg/dL (7-17); Carbon Dioxide 27 mmol/L (22-32); Chloride 97 mmol/L (98-107); Estimated Glomerular Filt Rate > 60.0 mL/min (>60); Globulin 2.7 g/dL (1.7-4.1); Glucose 299 mg/dL (80-110); HEMOLYSIS < 15 (0-50); Potassium 5.2 mmol/L (3.4-5.1); Sodium 130 mmol/L (137-145); Total Protein 6.9 g/dL (6.3-8.2)
[2021-01-28 21:00] LABS: Thyroid Stimulating Hormone 0.396 uIU/mL (0.47-4.68)
== END ==
PROVIDERS: PCP Family Medicine; Visit Provider Family Medicine
DX: E11.9 Type 2 diabetes mellitus without complications (principal); R07.9 Chest pain, unspecified; Z79.4 Long term (current) use of insulin
CPT/HCPCS: 80053; 84439; 84443

== ENCOUNTER → 2021-03-31 12:00 | Outpatient (CLI) | payer MEDICARE, OTHER, SELFPAY ==
[2021-03-31 19:57] LABS: COVID19 - ORCAS (NP or Nasal) Negative (Negative)
== END ==
PROVIDERS: PCP Family Medicine; Visit Provider Physician Assistant Medical
DX: Z01.812 Encounter for preprocedural laboratory examination (principal); Z20.822 Contact with and (suspected) exposure to COVID-19
CPT/HCPCS: U0003

== ENCOUNTER → 2021-04-01 13:29 | Outpatient (CLI) | payer MEDICARE, OTHER, SELFPAY ==
--- NOTE | 2021-04-01 13:35 | DI.ECHO.S_ITS ---
[facility]---------+ [facility] +---------+ : : [address] : : : : [id number] : : : : Phone: [phone]+ Echocardiogram Report + + :Name: GIOVANA BLUNT Study Date: 04/01/2021 Height: 65 in : :[facility] ReadingLocation: Weight: 150 lb : : Gender: Female BSA: 1.8 m2 : :: 1945 Age: 75 yrs BP: 128/69 mmHg: :Reason For Study: Dyspnea : :Ordering Physician: Ariana : :Kai Adler Performed By: Charlie Mcknight : :Referring: ARIANA ADLER : + + Interpretation Summary 1) Normal left ventricular thickness, size, wall motion, and systolic function (EF 55-60%). 2) Normal right ventricular size and function. 3) No significant valvular abnormalities. 4) The right ventricular systolic pressure is estimated to be at least 24 mmHg based on an estimated right atrial pressure of 3 mm Hg. 5) No prior Echo available for comparison. Procedure: A two-dimensional transthoracic echocardiogram with color flow and Doppler was performed. The study quality was technically adequate. There is no prior echocardiogram noted for this patient. The patient was in sinus rhythm with heart rates between 64-72 bpm during the exam. Left Ventricle: The left ventricle is normal in size and wall thickness. Left ventricular systolic function is normal. The ejection fraction is estimated to be 55-60%. There are no focal wall motion abnormalities. Diastolic parameters suggest probable normal left ventricular diastolic function and normal filling pressures. Right Ventricle: The right ventricle is normal in size and function. Atria: Both atria are normal in size. There is no Doppler evidence for an interatrial shunt. Mitral Valve: There is mild mitral annular calcification. There is no mitral regurgitation noted. Aortic Valve: The aortic valve is normal in structure and function. There is no hemodynamically significant valvular aortic stenosis. No aortic regurgitation is present. Tricuspid Valve: The tricuspid valve is normal in structure and function. There is mild tricuspid regurgitation. The right ventricular systolic pressure is estimated to be at least 24 mmHg based on an estimated right atrial pressure of 3 mm Hg. Pulmonic Valve: The pulmonic valve is normal in structure and function. There is mild pulmonic regurgitation. Great Vessels: The aortic root is normal size. The dimensions of the ascending aorta are normal. The IVC is of normal diameter and collapses greater than 50% with a sniff. This suggests a low right atrial pressure of 3 mm Hg. Pericardium/ Pleura There is no pericardial effusion. There is no pleural effusion. MMode/2D Measurements & Calculations LVIDd: 4.4 cm LVOT diam: 2.0 cm LVIDs: 2.9 cm Ao root diam: 2.8 cm FS: 34.0 % asc Aorta Diam: 3.2 cm IVSd: 0.87 cm LVPWd: 0.61 cm LV ngo. diameter/BSA (cm/m^2): 2.5 LV sys. diameter/BSA (cm/m^2): 1.7 LA A2 area: 14.4 cm2 RA long axis: 3.8 cm LA A4 area: 12.3 cm2 RA area: 11.0 cm2 LA length (vol): 4.7 cm RA vol: 27.0 ml LA vol: 32.3 ml RA : 15.4 ml/m2 LA vol index: 18.5 ml/m2 IVC diam: 1.9 cm RVD1 (basal): 2.7 cm TAPSE: 2.8 cm Doppler Measurements & Calculations Ao V2 max: 148.1 cm/sec LVOT Max Neo: 92.1 cm/sec Ao V2 mean: 108.4 cm/sec LV V1 max P.4 mmHg Ao max P.8 mmHg LV V1 VTI: 20.6 cm Ao mean P.2 mmHg MAISHA(I,D): 1.9 cm2 Ao V2 VTI: 33.3 cm MAISHA(V,D): 1.9 cm2 sev ratio: 0.62 MAISHA indexed to BSA (cm^2/m^2): 1.1 MV E max neo: 95.0 cm/sec TR max neo: 226.3 cm/sec MV A max neo: 86.4 cm/sec TR max P.5 mmHg MV E/A: 1.1 PA V2 max: 110.4 cm/sec Med Peak E' Neo: 9.1 cm/sec PA V2 mean: 78.1 cm/sec E/E' med: 10.5 PA mean P.7 mmHg Lat Peak E' Neo: 10.7 cm/sec PA pr(Accel): 33.3 mmHg E/E' lat: 8.8 E/e' average: 9.7 MV dec time: 0.21 sec SV(LVOT): 61.9 ml Reading Physician:12:16 PM
--- NOTE | 2021-04-01 15:53 | PM.TREADMILL ---
Cardiac Stress Test Report Referral & Results Date Patient Seen: 04/01/21 Time Patient Seen: 15:53 Requesting provider: Geoff Adler Indication: chest pain Rest ECG: Sinus rhythm Procedure Note: Standard Chauncey protocol, 6:49 mins, 6.9 METS Very good exercise capacity, CANDACE -33% Normal hemodynamic response to exercise No chest pain or anginal symptoms 1-1.[address] depression in II, III, aVF, V4-V6 Rare PVC Impression: Normal exercise stress test Please note: Actual ECG tracings can be found in the PACS system.
--- NOTE | 2021-04-01 17:13 | DI.NM.S_ITS ---
DATE OF SERVICE: 04/01/2021 PROCEDURE: Exercise treadmill stress test without imaging. ORDERING PROVIDER: Dr. Oziel Adler. INDICATIONS: The patient is a 75-year-old, diabetic, hyperlipidemic female with recent fatigue, chest discomfort, and exertional dyspnea. FINDINGS: 1. The patient was able to exercise for 6 minutes 49 seconds on a standard Chauncey protocol suggesting excellent exercise capacity with an CANDACE of -33%, achieving 6.9 METs. 2. She had a normal heart rate and blood pressure response, achieving a maximum heart rate of 152 BPM (106% of her predicted maximum). 3. She had no chest discomfort or other concerning anginal symptoms. 4. Her resting ECG shows sinus rhythm with an occasional PAC and subtle inferolateral ST-segment abnormality. With exercise, there were no obvious significant ST-segment shifts although there is significant motion artifact that limits the interpretation. The immediate recovery tracings show slight accentuation of the ST-segment abnormalities at baseline, although again limited by some motion artifact and these abnormalities are subtle and nonspecific. She had occasional PACs with exercise and in recovery, but no concerning arrhythmias. IMPRESSION: 1. Probable normal exercise treadmill test for ischemia, although motion artifact of the tracings limits the interpretation to a slight degree. Yet, this is a low-risk study. 2. Excellent exercise capacity without angina. She had rare PACs at rest and with stress, but no concerning arrhythmias. Glendy Flynn - CHOCO/laisha/lynsey doc#: [id number]/job#: [id number] dd: 04/01/2021 16:25:00 dt: 04/01/2021 17:02:00 DICTATING MD/COPIES TO: Shad Herrera MD; Geoff Adler MD; [place], [place] COPIES MNE: GABI; ; [place]
== END ==
PROVIDERS: PCP Family Medicine; Referring Provider Internal Medicine Cardiovascular Disease; Visit Provider Internal Medicine Cardiovascular Disease
DX: R06.00 Dyspnea, unspecified (principal); R07.89 Other chest pain; E11.9 Type 2 diabetes mellitus without complications; E78.5 Hyperlipidemia, unspecified; R53.83 Other fatigue
CPT/HCPCS: 93017; 93306

== ENCOUNTER 2021-10-09 00:04 | Emergency (ER) | payer MEDICARE, OTHER, SELFPAY ==
[2021-10-09 00:21] VITALS: BP 142/106; PULSE 89; RESP 16; TEMP 36.7; O2SAT 98; BMI 25.0
--- NOTE | 2021-10-09 00:36 | ED_ITS ---
HPI - General Adult General Chief complaint: Diabetic Problem Stated complaint: LOW ON INSULIN Time Seen by Provider: 10/09/21 00:17 Source: patient Mode of arrival: Ambulatory History of Present Illness HPI narrative: Patient is a 76-year-old female insulin-dependent diabetic presenting with elevated glucose. She is actually here with her who is being admitted to the hospital she has an insulin pump and constant glucose monitoring is noted her glucose to be in the 300s. She states that is abnormal. She denies any abdominal pain nausea vomiting. She says she did not even eat dinner. She is concerned she does not know how much insulin she has in her pump, she is quite anxious and stressed[place] how she is going to get it. Related Data Home Medications Medication Instructions Recorded Confirmed simvastatin 20 mg tablet (Zocor) 20 mg PO BEDTIME #0 09/06/12 02/17/21 [FISH OIL] 1,000 mg PO QDAY #0 03/18/13 02/17/21 [MULTI VITAMIN ] #0 03/18/13 02/17/21 aspirin 81 mg tablet,delayed 81 mg PO BID #0 03/18/13 02/17/21 release insulin aspart U-100 100 unit/mL 08/09/19 02/17/21 subcutaneous solution (Novolog U-100 Insulin aspart) levothyroxine 125 mcg tablet 125 mcg PO DAILY 08/09/19 02/17/21 trazodone 100 mg tablet 100 mg PO BEDTIME 08/09/19 02/17/21 escitalopram oxalate 10 mg tablet 10 mg PO DAILY 01/28/21 02/17/21 (Lexapro) Previous Rx's Medication Instructions Recorded metoprolol succinate 25 mg 25 mg PO DAILY #30 tab 01/28/21 tablet,extended release 24 hr nitroglycerin 0.4 mg sublingual 0.4 mg SUBLINGUAL Q5M PRN #20 tab 01/28/21 tablet Allergies Allergy/AdvReac Type Severity Reaction Status Date / Time No Known Drug Allergies Allergy Verified 02/17/21 14:24 Review of Systems Review of Systems Narrative: GENERAL: Denies chills,fever HEENT: Denies throat pain RESPIRATORY: Denies dyspnea, cough, wheezing CARDIOVASCULAR: Denies chest pain, palpitations GASTROINTESTINAL: Denies nausea, vomiting MUSCULOSKELETAL: Denies extremity pain, injury SKIN: No rash, no laceration, no pruritus NEUROLOGIC: Denies weakness, dizziness, headache, numbness 8 point review of systems is negative except for those stated above and HPI Patient History Medical History Chest pain Depression Hyperlipidemia Hypothyroidism Surgical History History of knee surgery Social History Smoking Status: Former smoker Smoking Status: Former smoker alcohol intake frequency: holidays/special occasions only Substance Use Type: does not use Exam Initial Vital Signs Initial Vital Signs: Vital Signs Temperature 98.1 F 10/09/21 00:21 Pulse Rate 89 10/09/21 00:21 Respiratory Rate 16 10/09/21 00:21 Blood Pressure 142/106 H 10/09/21 00:21 Pulse Oximetry 98 10/09/21 00:21 GENERAL: Well-appearing, well-nourished and in no acute distress. CARDIOVASCULAR: peripheral pulses in tact, cap refill <2 sec RESPIRATORY: No respiratory distress, speaks in full sentences without difficulty EXTREMITIES: Normal range of motion, no clubbing or edema. Neurovascularly in tact NEUROLOGICAL: Cranial nerves II through XII grossly intact. Normal gait and speech. SKIN: Warm, dry, no petechiae, no rashes or lesions. Course Orders Ordered: Discontinued Medications Insulin Human Regular (Insulin Regular 100 Unit/Ml 3 Ml Vial) 45 unit SUBCUT NOW ONE Stop: 10/09/21 00:25 Vital Signs Vital signs: Vital Signs - 8 hr 10/09/21 00:21 10/09/21 01:35 Temperature 98.1 F Pulse Rate 89 95 H Respiratory Rate 16 18 Blood Pressure 142/106 H 177/84 H Pulse Oximetry 98 96 Medical Decision Making Lab Data Labs: Point of Care Testing Glucose POC 228 Point of care testing: Point of Care Testing Glucose POC 228 MDM Narrative Medical decision making narrative: Patient's glucose has actually decreased correlates with our Accu-Chek. She actually realizes that she is 25 minutes left in her pump she says she uses 45 units a over 24 hour period. At this time she has no signs or symptoms consistent with DKA. At this time thing further to be done. Discharge Plan Departure Patient Disposition: Home Clinical Impression: Acute hyperglycemia Instructions: DI for Diabetes Type 1 -- Adult Activity Restrictions/Additional Instructions: *You have been diagnosed with diabetes hyperglycemia *What to do: Please continue insulin as previously prescribed. *Continue to take medications as directed *Follow up with your primary care provider in 2-3 days or call [phone] *Return to ER if you should have abdominal pain nausea vomiting elevated blood sugars or any new, worsening or concerning symptoms Prescriptions: No Action simvastatin [Zocor] 20 MG tablet 20 mg PO BEDTIME Qty: 0 0RF aspirin 81 MG tablet,delayed release (DR/EC) 81 mg PO BID Qty: 0 0RF [FISH OIL] 1,000 mg PO QDAY Qty: 0 0RF [MULTI VITAMIN ] Qty: 0 0RF trazodone 100 mg tablet 100 mg PO BEDTIME 0RF Novolog U-100 Insulin aspart 100 unit/mL solution 0RF levothyroxine 125 mcg tablet 125 mcg PO DAILY 0RF escitalopram oxalate [Lexapro] 10 mg tablet 10 mg PO DAILY 0RF metoprolol succinate 25 mg tablet extended release 24 hr 25 mg PO DAILY Qty: 30 2RF nitroglycerin 0.4 mg tablet, sublingual 0.4 mg sublingual Q5M PRN (Reason: chest pain) Qty: 20 1RF Rx Instructions: do not exceed 3 doses per episode Referrals: John Woo MD [Primary Care Provider] -
[2021-10-09 01:35] VITALS: BP 177/84; PULSE 95; RESP 18; O2SAT 96
== END 2021-10-09 01:36 | disposition home or self-care (01) ==
PROVIDERS: Emergency Provider Emergency Medicine; PCP Family Medicine
DX: E11.65 Type 2 diabetes mellitus with hyperglycemia (principal); Z96.41 Presence of insulin pump (external) (internal); Z87.891 Personal history of nicotine dependence
CPT/HCPCS: 82962; 96372; 99281; 99283

== ENCOUNTER → 2023-05-23 15:11 | Outpatient (ROUT) | payer MEDICARE, OTHER, SELFPAY | PROVIDERS: PCP Family Medicine; Visit Provider Ophthalmology | DX: H16.012 Central corneal ulcer, left eye (principal); E10.9 Type 1 diabetes mellitus without complications | CPT/HCPCS: 87070; 87075; 87102; 87205; 87252 ==

== ENCOUNTER → 2024-06-20 09:46 | Outpatient (CLI) | payer MEDICARE, OTHER, SELFPAY ==
--- NOTE | 2024-06-20 09:49 | DI.CT.S_ITS ---
PROCEDURE: CT ABDOMEN PELVIS W CON INDICATIONS: DIVERTICULITIS OF LARGE INTESTINE TECHNIQUE: After the administration of intravenous contrast, axial sections acquired from the lung bases to the pubic symphysis. Coronal and sagittal reformats were performed. For radiation dose reduction, the following was used: automated exposure control, adjustment of mA and/or kV according to patient size. COMPARISON: None. FINDINGS: Image quality: Diagnostic. Lower Chest: 5 millimeter ground-glass nodule in the right lower lobe (series 5, image 5); size does not warrant follow-up per consensus guidelines. Small hiatal hernia. ABDOMEN: Liver: No solid mass. Gallbladder: No radiopaque gallstones or wall thickening. Biliary ducts: No biliary dilation. Pancreas: No ductal dilation. Spleen: Size is within normal limits. Adrenal Glands: No adrenal nodules. Kidneys and Ureters: No hydronephrosis. No solid mass. No complex renal cystic lesion which requires follow up. Stomach and Bowel: Normal colonic caliber, without significant wall thickening. Colonic diverticulosis without evidence of diverticulitis. Appendectomy. Peritoneum: No abnormal intraperitoneal fluid. No free air. Ventral Wall: No significant ventral hernia. Abdominal Nodes: No retroperitoneal or mesenteric adenopathy by size criteria. Vessels: Aorta and inferior vena cava are normal in size. PELVIS: Pelvic Organs: Calcified uterine fibroid and atrophic ovaries. Bladder: No bladder wall thickening, accounting for underdistention. Pelvic Nodes: No enlarged lymph nodes. Miscellaneous: No inguinal hernias are seen. Bones: No aggressive osseous abnormality. Vertebral hemangioma the L2 vertebral body. Grade 1 anterolisthesis of L4 on L5 secondary to facet arthrosis. Degenerative disc disease of the lumbar spine. IMPRESSION: Colonic diverticulosis without evidence of diverticulitis. Dictated by: Chip Bhat M.D. on 06/21/2024 at 11:18 Approved by: Chip Bhat M.D. on 06/21/2024 at 11:21
== END ==
PROVIDERS: PCP Family Medicine; Referring Provider Family Medicine; Visit Provider Family Medicine
DX: K57.30 Diverticulosis of large intestine without perforation or abscess without bleeding (principal); R91.1 Solitary pulmonary nodule; D25.9 Leiomyoma of uterus, unspecified; N83.312 Acquired atrophy of left ovary; N83.311 Acquired atrophy of right ovary; D18.09 Hemangioma of other sites; M51.36 Other intervertebral disc degeneration, lumbar region; M47.816 Spondylosis without myelopathy or radiculopathy, lumbar region; M43.16 Spondylolisthesis, lumbar region; Z90.49 Acquired absence of other specified parts of digestive tract
CPT/HCPCS: 74177; Q9967

== ENCOUNTER → 2024-07-18 11:13 | Outpatient (CLI) | payer MEDICARE, OTHER, SELFPAY ==
--- NOTE | 2024-07-18 11:14 | DI.MRI.S_ITS ---
PROCEDURE: MR BRAIN (PITUITARY) WWO CON INDICATIONS: HEADACHE/NEOPLASM OF PITUITARY GLAND TECHNIQUE: Noncontrast sagittal and axial FLAIR, axial gradient echo, axial diffusion and ADC through the brain. Thin-slice sagittal and coronal T1 spin echo, coronal T2 fast spin echo through the pituitary. After the administration contrast, optional dynamic coronal T1 spin echo, thin-slice coronal and sagittal T1 spin echo images through the pituitary fossa; axial and coronal and sagittal T1 spin echo with fat saturation through the brain. COMPARISON: (A prior pituitary parotid protocol brain MRI from 02/24/2015 is not available from the archive for review at the time of this dictation.) FINDINGS: Image quality: Excellent. Pituitary Gland: Along the right aspect of the pituitary gland, there is again seen a poorly enhancing nodule that measures 7 x 4 x 5 mm. The pituitary gland demonstrates normal signal and bulk. The pituitary stalk and infundibulum have an unremarkable appearance. A normal appearing pituitary bright spot is seen posteriorly on the precontrast sagittal T1-weighted images. The optic chiasm and the ventral forebrain have an unremarkable appearance. CSF Spaces: Ventricles are normal in size and shape. Basal cisterns are patent. No extra-axial fluid collections. Brain: No intracranial bleeds or mass effects. No abnormal intracranial enhancement. Craft-white matter interface is intact. Diffusion weighted images demonstrate no acute ischemic insults. Brainstem is normal. Normal intravascular flow voids are present. Skull and face: Calvarial marrow is normal in signal. Orbits appear normal. Sinuses: Sinuses and mastoids are clear. IMPRESSION: 7 mm right-sided pituitary nodule seen. Dictated by: Kodak Lundberg M.D. on 07/18/2024 at 11:07 Transcribed by: WILD on 07/18/2024 at 11:53 Approved by: Kodak Lundberg M.D. on 07/18/2024 at 15:06
== END ==
PROVIDERS: PCP Family Medicine; Referring Provider Family Medicine; Visit Provider Family Medicine
DX: D44.3 Neoplasm of uncertain behavior of pituitary gland (principal); R51.9 Headache, unspecified
CPT/HCPCS: 70553; A9579

== ENCOUNTER → 2025-03-19 09:16 | Outpatient (CLI) | payer MEDICARE, OTHER, SELFPAY ==
--- NOTE | 2025-03-19 09:18 | DI.MRI.S_ITS ---
PROCEDURE: MR BRAIN (PITUITARY) O CON INDICATIONS: HISTORY OF PITUITARY ADENOMA TECHNIQUE: Noncontrast sagittal and axial FLAIR, axial gradient echo, axial diffusion and ADC through the brain. Thin-slice sagittal and coronal T1 spin echo, coronal T2 fast spin echo through the pituitary. After the administration contrast, optional dynamic coronal T1 spin echo, thin-slice coronal and sagittal T1 spin echo images through the pituitary fossa; axial and coronal and sagittal T1 spin echo with fat saturation through the brain. COMPARISON: [facility], MR, MR BRAIN (PITUITARY) WWO CON, 07/18/2024, 11:23. [facility], MR, BRAIN (PITUITARY) W&WO CONTRAS, 02/24/2015, 13:03. FINDINGS: Image quality: Excellent. Pituitary Gland: Pituitary gland has normal size and contour. There is a 7 x 5 x 6 millimeter area of delayed postcontrast enhancement in the right margin of the pituitary gland consistent with reported pituitary microadenoma. Microadenoma is not significantly changed compared to prior exam. Pituitary infundibulum is midline. No suprasellar masses. Optic chiasm is normal. Cavernous sinus demonstrates normal postcontrast enhancement. CSF Spaces: Ventricles are normal in size and shape. Basal cisterns are patent. No extra-axial fluid collections. Brain: No intracranial bleeds or mass effects. There is mild, diffuse cerebral volume loss. No abnormal intracranial enhancement. Craft-white matter interface is intact. Diffusion weighted images demonstrate no acute ischemic insults. Brainstem is normal. Normal intravascular flow voids are present. Skull and face: Calvarial marrow is normal in signal. Orbits appear normal. Sinuses: Sinuses and mastoids are clear. IMPRESSION: 7 x 5 x 6 millimeter pituitary microadenoma without significant change. Dictated by: Lyla Swain MD, PhD on 03/19/2025 at 11:23 Approved by: Lyla Swain MD, PhD on 03/19/2025 at 11:32
== END ==
PROVIDERS: PCP Family Medicine; Referring Provider Family Medicine; Visit Provider Family Medicine
DX: D35.2 Benign neoplasm of pituitary gland (principal); R79.89 Other specified abnormal findings of blood chemistry
CPT/HCPCS: 70553; A9579